=== PATIENT | female | born 1975 | race Caucasian/White ===

== ENCOUNTER 2019-09-17 14:54 | Inpatient (IN) | payer MEDICAID ==
[~2019-09-17] VITALS: Ht 157.5 cm; Wt 83.9 kg
[2019-09-17 15:08] VITALS: BP_SYST 148
[2019-09-17] MEDS ORDERED: NACL 0.9% 1,000 ML IV ONE (15:20)
[2019-09-17 15:59] LABS: BASOPHILS # (AUTO) 0.1 K/uL (0.0-0.2); BASOPHILS % (AUTO) 1.1 % (0.0-2.0); EOSINOPHILS % (AUTO) 0.6 % (0.0-4.0); HEMATOCRIT 25.2 % (36-48); HEMOGLOBIN 7.2 g/dL (12.0-16.0); LYMPHOCYTES # (AUTO) 1.3 K/uL (1.0-5.5); LYMPHOCYTES % (AUTO) 20.8 % (20.5-51.5); MEAN CORPUSCULAR HEMOGLOBIN 17 pg (27-31); MEAN CORPUSCULAR HGB CONC 29 % (32-36); MEAN CORPUSCULAR VOLUME 59 fL (79.0-98.0); MONOCYTES # (AUTO) 0.3 K/uL (0.0-1.0); NEUTROPHILS # (AUTO) 4.6 K/uL (1.8-7.7); NEUTROPHILS % (AUTO) 72.5 % (40.0-70.0); PLATELET COUNT (AUTO) 462 K/uL (130-430); RED BLOOD CELL COUNT(AUTO) 4.28 MIL/uL (4.2-6.2); RED CELL DISTRIBUTION WIDTH 19.4 % (9.0-15.0); WHITE BLOOD COUNT (AUTO) 6.3 K/uL (4.8-10.8)
[2019-09-17 16:01] LABS: CALCIUM 7.9 mg/dL (8.4-11.0); CHLORIDE 95 mmol/L (98-107); CREATININE 0.75 mg/dL (0.55-1.30); POTASSIUM 4.2 mmol/L (3.5-5.1); SODIUM SERUM 124 mmol/L (136-145); UREA NITROGEN, BLOOD 12 mg/dL (8-21)
[2019-09-17 16:04] LABS: ANION GAP < 3 (5-15); GFR AFRICAN AMERICAN 109 mL/min (>90)
[2019-09-17 16:07] LABS: GLUCOSE 462 mg/dL (70-99)
[2019-09-17 16:19] LABS: TOTAL BILIRUBIN 0.2 mg/dL (0.0-1.0)
[2019-09-17 16:20] LABS: ALANINE AMINOTRANSFERASE 16 U/L (12-78); ALBUMIN 1.5 g/dL (3.4-4.8); ASPARTATE AMINOTRANSFERASE 17 U/L (10-37)
[2019-09-17 16:37] LABS: ACETONE, SERUM NEGATIVE (NEGATIVE)
[2019-09-17] MEDS ORDERED: INSULIN REGULAR, HUMAN 10 UNITS/0.1 ML INJ IVP ONE (17:00)
[2019-09-17 17:08] LABS: TOTAL IRON BIND. CAPACITY 272 ug/dL (250-450)
[2019-09-17] MEDS ORDERED: ASPIRIN 81 MG TAB.CHEW PO ONE (18:00)
[2019-09-17 18:34] LABS: INR 0.9 (0.8-1.2); PROTHROMBIN TIME 9.5 SECS (9.5-12.5)
[2019-09-17] MEDS ORDERED: DEXTROSE 50% JECT 50 ML DISP.SYRIN IVP PRN (19:15)
[2019-09-17 21:52] VITALS: BP_SYST 129
[2019-09-17 23:00] LABS: HEMATOCRIT 24.4 % (36-48); HEMOGLOBIN 7.1 g/dL (12.0-16.0)
[2019-09-17 23:12] LABS: CHOLESTEROL 172 mg/dL (<200); HDL CHOLESTEROL 57 mg/dL (>55); LDL CHOLESTEROL 87 mg/dL (<100); TRIGLYCERIDES 122 mg/dL (30-150)
[2019-09-18] VITALS: BP_SYST 138
[2019-09-18] MEDS: PANTOPRAZOLE SODIUM 40 MG/VIAL (PROTONIX) IVP SCH ×2 (06:30→21:01)
[2019-09-18 06:31] LABS: HEMATOCRIT 27.4 % (36-48); HEMOGLOBIN 8.1 g/dL (12.0-16.0)
[2019-09-18 07:51] VITALS: BP_SYST 143
[2019-09-18 09:06] LABS: TOTAL IRON BIND. CAPACITY 255 ug/dL (250-450)
[2019-09-18] MEDS ORDERED: CARVEDILOL 12.5 MG TABLET (COREG) PO ONE (10:15)
[2019-09-18] MEDS ORDERED: LOSARTAN POTASSIUM 25 MG TABLET PO ONE (10:15)
[2019-09-18] MEDS: CARVEDILOL 12.5 MG TABLET (COREG) PO SCH ×2 (10:16→21:03)
[2019-09-18] MEDS: LOSARTAN POTASSIUM 25 MG TABLET PO SCH ×2 (10:17→21:02)
[2019-09-18 10:58] LABS: HEMATOCRIT 30.2 % (36-48); HEMOGLOBIN 8.9 g/dL (12.0-16.0)
[2019-09-18] MEDS: INSULIN REGULAR, HUMAN 100 UNITS/ML, 10 ML VIAL (humuLIN R) SUBCUT PRN ×3 (11:26→23:44)
[2019-09-18 12:00] VITALS: BP_SYST 123
[2019-09-18 13:47] LABS: BILIRUBIN,URINE NEGATIVE (NEGATIVE); BLOOD, URINE 1+ (NEGATIVE); CLARITY/URINE SL CLOUDY (CLEAR); COLOR,URINE YELLOW (YELLOW); GLUCOSE,URINE 1+ (NEGATIVE); KETONES,URINE 1+ (NEGATIVE); LEUKOCYTE ESTERASE ,URINE NEGATIVE (NEGATIVE); NITRITE, URINE NEGATIVE (NEGATIVE); PROTEIN URINE 3+ (NEGATIVE); UROBILINOGEN,URINE 0.2 (0.2-1.0)
[2019-09-18 13:55] LABS: BACTERIA,URINE MODERATE /HPF (None Seen); WBC,URINE 0-3 /HPF (0-3)
[2019-09-18 19:35] LABS: HEMATOCRIT 29.6 % (36-48); HEMOGLOBIN 8.5 g/dL (12.0-16.0)
[2019-09-18 20:00] VITALS: BP_SYST 124
[2019-09-19] MEDS ORDERED: ZOLPIDEM TARTRATE 5 MG TABLET PO ONE
[2019-09-19 01:42] VITALS: BP_SYST 113
[2019-09-19 04:00] VITALS: BP_SYST 122
[2019-09-19] MEDS: INSULIN REGULAR, HUMAN 100 UNITS/ML, 10 ML VIAL (humuLIN R) SUBCUT PRN ×3 (05:42→17:20)
[2019-09-19 06:22] LABS: HEMATOCRIT 27.3 % (36-48); HEMOGLOBIN 8.1 g/dL (12.0-16.0)
[2019-09-19 06:42] LABS: ALBUMIN 1.2 g/dL (3.4-4.8); CALCIUM 7.8 mg/dL (8.4-11.0); CREATININE 0.65 mg/dL (0.55-1.30); POTASSIUM 3.8 mmol/L (3.5-5.1); THYROID STIMULATING HORMONE 0.74 uIu/mL (0.36-3.74); TOTAL BILIRUBIN 0.3 mg/dL (0.0-1.0)
[2019-09-19] MEDS: CARVEDILOL 12.5 MG TABLET (COREG) PO SCH ×2 (09:00→21:44)
[2019-09-19] MEDS: LOSARTAN POTASSIUM 25 MG TABLET PO SCH ×2 (09:01→21:44)
[2019-09-19] MEDS: PANTOPRAZOLE SODIUM 40 MG/VIAL (PROTONIX) IVP SCH ×2 (09:01→21:43)
[2019-09-19] MEDS: FUROSEMIDE 40 MG/4 ML VIAL IVP SCH (09:02)
[2019-09-19 09:05] VITALS: BP_SYST 115
[2019-09-19 12:12] VITALS: BP_SYST 110
[2019-09-19] MEDS ORDERED: BISACODYL 5 MG TABLET.DR (DULCOLAX) PO ONE (17:00)
[2019-09-19] MEDS ORDERED: GOLYTELY / COLYTE SOLUTION 4 LITERS PO ONE (18:00)
[2019-09-19 20:00] VITALS: BP_SYST 112
[2019-09-19] MEDS: ZOLPIDEM TARTRATE 5 MG TABLET PO SCH (21:00)
[2019-09-19] MEDS ORDERED: MORPHINE 2 MG/ML INJ. SYRINGE IVP ONE (21:00)
[2019-09-20] VITALS: BP_SYST 116
[2019-09-20] MEDS: INSULIN REGULAR, HUMAN 100 UNITS/ML, 10 ML VIAL (humuLIN R) SUBCUT PRN ×2 (00:53→07:17)
[2019-09-20 05:33] LABS: PROTHROMBIN TIME 9.8 SECS (9.5-12.5)
[2019-09-20 05:51] LABS: ALBUMIN 1.3 g/dL (3.4-4.8); CALCIUM 7.5 mg/dL (8.4-11.0); CREATININE 0.61 mg/dL (0.55-1.30); TOTAL BILIRUBIN 0.2 mg/dL (0.0-1.0)
[2019-09-20 06:29] LABS: BASOPHILS % (AUTO) 0.7 % (0.0-2.0); EOSINOPHILS % (AUTO) 0.5 % (0.0-4.0); HEMATOCRIT 26.6 % (36-48); HEMOGLOBIN 7.8 g/dL (12.0-16.0); LYMPHOCYTES # (AUTO) 2.2 K/uL (1.0-5.5); MEAN CORPUSCULAR HEMOGLOBIN 18 pg (27-31); MEAN CORPUSCULAR HGB CONC 30 % (32-36); MEAN CORPUSCULAR VOLUME 62 fL (79.0-98.0); MONOCYTES # (AUTO) 0.5 K/uL (0.0-1.0); MONOCYTES % (AUTO) 7.7 % (1.7-9.3); NEUTROPHILS # (AUTO) 3.5 K/uL (1.8-7.7); NEUTROPHILS % (AUTO) 56.1 % (40.0-70.0); PLATELET COUNT (AUTO) 511 K/uL (130-430); RED BLOOD CELL COUNT(AUTO) 4.28 MIL/uL (4.2-6.2); RED CELL DISTRIBUTION WIDTH 20.7 % (9.0-15.0); WHITE BLOOD COUNT (AUTO) 6.3 K/uL (4.8-10.8)
[2019-09-20 08:00] VITALS: BP_SYST 98
[2019-09-20] MEDS: CARVEDILOL 12.5 MG TABLET (COREG) PO SCH ×2 (08:48→21:12)
[2019-09-20] MEDS: LOSARTAN POTASSIUM 25 MG TABLET PO SCH ×2 (08:49→21:12)
[2019-09-20] MEDS: FUROSEMIDE 40 MG/4 ML VIAL IVP SCH (08:53)
[2019-09-20] MEDS: PANTOPRAZOLE SODIUM 40 MG/VIAL (PROTONIX) IVP SCH ×2 (08:55→21:10)
[2019-09-20 12:00] VITALS: BP_SYST 109
[2019-09-20] MEDS: MIDAZOLAM HCL 5 MG/5 ML VIAL ONE ×3 (14:21→15:50)
[2019-09-20] MEDS: MEPERIDINE HCL/PF 100 MG/ML AMP ONE ×2 (14:21→15:46)
[2019-09-20] MEDS ORDERED: SIMETHICONE 40 MG/0.6 ML ML ONE (14:22)
[2019-09-20] MEDS ORDERED: MIDAZOLAM HCL 5 MG/5 ML VIAL ONE (14:22)
[2019-09-20 16:00] VITALS: BP_SYST 109
[2019-09-20 16:30] VITALS: BP_SYST 128
[2019-09-20 20:00] VITALS: BP_SYST 133
[2019-09-20] MEDS: ZOLPIDEM TARTRATE 5 MG TABLET PO SCH (21:10)
[2019-09-21] MEDS: INSULIN REGULAR, HUMAN 100 UNITS/ML, 10 ML VIAL (humuLIN R) SUBCUT PRN ×4 (05:50→11:41)
[2019-09-21] MEDS ORDERED: INSULIN REGULAR, HUMAN 100 UNITS/ML, 10 ML VIAL SUBCUT ONE (07:15)
[2019-09-21] MEDS ORDERED: ACETAMINOPHEN 325 MG TABLET PO ONE (07:15)
[2019-09-21 07:55] VITALS: BP_SYST 113
[2019-09-21] MEDS ORDERED: LOSARTAN POTASSIUM 25 MG TABLET PO SCH (09:00)
[2019-09-21] MEDS: FUROSEMIDE 40 MG/4 ML VIAL IVP SCH (09:00)
[2019-09-21] MEDS: LOSARTAN POTASSIUM 25 MG TABLET PO SCH (09:13)
[2019-09-21] MEDS: CARVEDILOL 12.5 MG TABLET (COREG) PO SCH (09:13)
[2019-09-21] MEDS: PANTOPRAZOLE SODIUM 40 MG/VIAL (PROTONIX) IVP SCH (09:13)
[2019-09-21] MEDS ORDERED: LOSA25TA3 PO (10:47)
[2019-09-21] MEDS ORDERED: COR12.5 PO (10:47)
[2019-09-21] MEDS ORDERED: FURO-149 PO (10:47)
[2019-09-21] MEDS ORDERED: GLIP2.5T3 PO (10:47)
[2019-09-21 12:00] VITALS: BP_SYST 98
[2019-09-21 12:16] VITALS: BP_SYST 110
== END 2019-09-21 12:25 | disposition home or self-care (01) | DRG 194 ==
LOC: SED 14:54 → STU 17:57
PROVIDERS: ADMIT Internal Medicine Hospice and Palliative Medicine; ATTEND Internal Medicine Hospice and Palliative Medicine
PROC: 30233N1 Transfusion of Nonautologous Red Blood Cells into Peripheral Vein, Percutaneous Approach (ICD-10-PCS; 2019-09-17)
PROC: 0DB78ZX Excision of Stomach, Pylorus, Via Natural or Artificial Opening Endoscopic, Diagnostic (ICD-10-PCS; 2019-09-20)
PROC: 0DB98ZX Excision of Duodenum, Via Natural or Artificial Opening Endoscopic, Diagnostic (ICD-10-PCS; principal; 2019-09-20 15:00)
DX: I11.0 Hypertensive heart disease with heart failure (principal); I21.A1 Myocardial infarction type 2; E43 Unspecified severe protein-calorie malnutrition; E11.65 Type 2 diabetes mellitus with hyperglycemia; E88.09 Other disorders of plasma-protein metabolism, not elsewhere classified; D50.9 Iron deficiency anemia, unspecified; F12.90 Cannabis use, unspecified, uncomplicated; I50.21 Acute systolic (congestive) heart failure; I42.0 Dilated cardiomyopathy; F15.10 Other stimulant abuse, uncomplicated; F41.9 Anxiety disorder, unspecified; Z60.2 Problems related to living alone; D63.8 Anemia in other chronic diseases classified elsewhere; Z91.14 Patient's other noncompliance with medication regimen; Z89.411 Acquired absence of right great toe; Z79.899 Other long term (current) drug therapy; Z59.0 Homelessness
CPT/HCPCS: 36415; 36600; 43239; 71045; 80053; 80061; 81000-TC; 81025; 82009-TC; 82728; 82803-TC; 82962; 83036; 83540-TC; 83550-TC; 83735-TC; 83880; 84443-TC; 84484; 84703; 85018-TC; 85025; 85379; 85610-TC; 85730-TC; 86886; 86900; 86901; 86920; 88305; 88312; 88313; 93005; 93306; 96361; 96374; 99291; C9113; G0378; J1815; J1940; J2175; J2250; J2270; J7040; P9021